=== PATIENT | female | born 1990 | race Caucasian/White ===

== ENCOUNTER 2020-10-07 16:48 | Inpatient (IN) | payer OTHER ==
[2020-10-07] MEDS ORDERED: Nalbuphine 10 MG/1 ML Vial IVPUSH PRN (17:40)
[2020-10-07] MEDS ORDERED: Sodium Chloride 0.9% 10 ML Syringe FLUSH PRN (17:40)
[2020-10-07] MEDS ORDERED: Ondansetron 4 MG/2 ML SDV IVPUSH PRN (17:40)
[2020-10-07] MEDS ORDERED: Ampicillin 2 GM in Sodium Chloride 0.9% 100 ML IV ONE (17:40)
[2020-10-07] MEDS ORDERED: Lidocaine 1% 50 ML MDV INJECT ONE (17:40)
[2020-10-07] MEDS ORDERED: Lactated Ringers 1,000 ML IV SCH (17:45)
[2020-10-07] MEDS ORDERED: Lactated Ringers 1,000 ML ONE (17:49)
--- NOTE | 2020-10-07 17:54 | PCM.LDHP ---
L&D History of Present Illness - General Date of Service: 10/07/20 Admit Problem/Dx: Patient Status Order with Admit Dx/Problem 10/07/20 17:11 Patient Status [ADT] Routine 10/07/20 17:40 Patient Status [ADT] Routine Admission Diagnosis/Problem Admission Diagnosis/Problem 10/07/20 17:46 Ragini is a 30-year old 2 para 1-0-0-1 white female admitted into labor and delivery on the late afternoon of 10/07/2020 at 38-2/7 weeks gestational age in active labor with progressive cervical dilation. Source of Information: Patient History Limitations: Reports: No Limitations - History of Present Illness Introduction:: Ragini is a 30-year old 2 para 1-0-0-1 white female admitted into labor and delivery on the late afternoon of 10/07/2020 at 38-2/7 weeks gestational age in active labor with progressive cervical dilation. She had been seen earlier in the clinic at which time she was amena approximate every 5 to 10 minutes. She was sent home but returned to labor and delivery with more frequent and intense contractions every 3 to 5 minutes. Her cervix changed from 3 cm to 4 cm, was 90% effaced, cephalic presentation, very soft, bulging bag waite and some bloody show present. 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 Patient had menarche at age 14. Cycles every 30 days. No control at the time of conception. Certain last menstrual period started on 01/13/2020. Her is dated by this LMP and supported by at least 3 ultrasounds done during the course of the . Previous obstetric history includes a delivery on 12/12/1999 3:19 hours of labor7 pound 14 ounce male infant born via in [facility]. Child's name is Angeles. course: Patient was seen early in the at approximately 11 weeks gestational age. She is seen on a regular basis throughout the . Her weight gain has been from 151 to 180.1 pounds for a 29 pound increase. Fundal height growth has been appropriate. Her has been relatively unremarkable. She has a history of rapid labor with her first . She plans to breast-feed. Her [place] depression screen score on 07/07/2020 was 5/30. She does not plan to have an epidural at this time but is open to it if needed. She is group B strep positive on urine culture done earlier in the . Laboratory testing in shows blood to be a positive with a negative antibody screen. Her hemoglobin is 13.8 g/dL. Platelets are 222,000. She is rubella immune. RPR is nonreactive. She had group B strep positive status on initial urine culture. Hepatitis B surface antigen and HIV assays were both negative. Her chlamydia and gonorrhea tests were negative. Second trimester l abs showed a hemoglobin of 13.7 g/dL. Her platelets are 220,000. Diabetic screen was normal at 111. RPR on 07/07/2020 was nonreactive. She is group B strep positive. Allergies: None Medications: 1. vitamins 1 daily 2. Vitamin D caps daily 3. Collagen caps daily 4. B complex oral capsules daily. Past medical history: 1. x1 as above. 2. History of migraine headaches. Family history: Mother is alive and well. Father is alive with history of heart disease. Brother alive with shoulder surgery history. 1 sister alive and well. Maternal grandmother is alive and well as his maternal grandfather. Paternal grandmother is secondary to stomach ulcers. Paternal grandfather is secondary to dementia. There is no known family history of cancer, bleeding, blood clotting disorders, anesthesia related issues or related issues. Paternal side of the family has a history of in vitro fertilization twins and triplets. Renal side has a history of twins. Social history: Patient is . She and her Maggi live in [place], [place]. She does not use any significant also alcohol, drugs or tobacco. Review of systems: In general patient has no complaints. She is reporting contractions as reported above. They have intensified and become more frequent. Baby has been active. Skin: Negative Lungs: No infectious symptoms or shortness of breath Cardiovascular: No chest pain or exercise intolerance Breasts: No lumps, changes in size, pain, dimpling, discharge or axillary or supraclavicular concerns. Patient plans to breast-feed. GI: Negative : Body habitus changes associated with . Musculoskeletal: Negative Neurological: Negative Physical exam: In general the patient is well-developed, well-nourished, pleasant female of stated age in no acute distress. On last evaluation clinic earlier today her blood pressure was 92/56. Weight was 180.1 pounds. heart rate is 147. Pregravid weight was 151 pounds giving a 29 pound increase. Skin is warm dry without lesions. HEENT, neck and back within normal limits. Lungs are clear with good breath sounds in all lung chau. Cardiovascular exam shows regular and rhythm without murmurs. Breast exam done early in was normal and is not repeated at this time. She has scars secondary to reduction mammoplasty. Abdomen is gravid with last fundal height earlier today at 39+ centimeters. Genitaldigital exam as reported above Extremities and neurological exam are grossly within normal limits. - Related Data Allergies/Adverse Reactions: Allergies Allergy/AdvReac Type Severity Reaction Status Date / Time No Known Allergies Allergy Verified 05/22/14 11:01 Home Medications: Home Meds Acetaminophen [Tylenol Extra Strength] 500 mg PO QID PRN 05/22/14 [History] Cholecalciferol (Vitamin D3) [Vitamin D] 5,000 unit PO DAILY 10/07/20 [History] Vits #93/Iron Fum/FA [ Formula Tablet] 1 tab PO DAILY 10/07/20 [History] Vitamin B Complex 1 cap PO DAILY 10/07/20 [History] H&P Review of Systems - Review of Systems: Review Of Systems: See Below L&D Exam - Exam Exam: See Below - Vital Signs Weight: 81.193 kg Problem List Initiated/Reviewed/Updated: Yes Orders Last 24hrs: Active Orders 24 hr Category Date Time Status Patient Status [ADT] Routine ADT 10/07/20 17:40 Ordered Activity as Tolerated [RC] PFP Care 10/07/20 17:40 Ordered Communication Order [RC] ASDIRECTED Care 10/07/20 17:40 Ordered Heart Tones [RC] ASDIRECTED Care 10/07/20 17:41 Ordered Non Stress Test [RC] PER UNIT ROUTINE Care 10/07/20 17:11 Active Non Stress Test [RC] PER UNIT ROUTINE Care 10/07/20 17:40 Ordered Notify Provider [RC] PFP Care 10/07/20 17:40 Ordered Notify Provider [RC] PRN Care 10/07/20 17:40 Ordered Peripheral IV Care [RC] . DIRECTED Care 10/07/20 17:41 Ordered Vital Signs [RC] PER UNIT ROUTINE Care 10/07/20 17:11 Active Vital Signs [RC] PER UNIT ROUTINE Care 10/07/20 17:40 Ordered Regular Diet [DIET] Diet 10/07/20 Dinner Ordered CBC W/O DIFF,HEMOGRAM [HEME] Routine Lab 10/07/20 17:40 Ordered CORONAVIRUS COVID-19 WES [MOLEC] Stat Lab 10/07/20 17:44 Ordered RAPID PLASMA REAGIN,RPR [CHEM] Routine Lab 10/07/20 17:40 Ordered RAPID PLASMA REAGIN,RPR [CHEM] Stat Lab 10/07/20 17:40 Ordered Ampicillin 1 gm Med 10/07/20 17:45 Ordered Sodium Chloride 0.9% [Normal Saline] 100 ml IV Q4H Ampicillin 2 gm Med 10/07/20 17:40 Ordered Sodium Chloride 0.9% [Normal Saline] 100 ml IV ONETIME Lactated Ringers [Ringers, Lactated] 1,000 ml Med 10/07/20 17:45 Ordered IV ASDIRECTED Lidocaine 1% [Xylocaine 1%] Med 10/07/20 17:40 Once 50 ml INJECT ONETIME ONE Nalbuphine [Nubain] Med 10/07/20 17:40 Ordered 10 mg IVPUSH Q2H PRN Ondansetron [Zofran] Med 10/07/20 17:40 Ordered 4 mg IVPUSH Q4H PRN Sodium Chloride 0.9% [Saline Flush] Med 10/07/20 17:40 Ordered 10 ml FLUSH ASDIRECTED PRN Electronic Heart Tones Ext w TOCO [WOMSER] Oth 10/07/20 17:40 Ordered Routine Electronic Heart Tones Internal [WOMSER] Per Unit Oth 10/07/20 17:40 Ordered Routine Peripheral IV Insertion Adult [OM.PC] Routine Oth 10/07/20 17:40 Ordered Resuscitation Status Routine Resus Stat 10/07/20 17:11 Ordered Assessment/Plan Comment:: 1. 38-2/7-week intrauterine , active labor, progressive cervical dilation 2. Group B strep screen positive. Patient has no allergies therefore is candidate for ampicillin prophylaxis per protocol 3. Patient desires to breast-feed 4. Patient desires not to have an epidural at this time but is open to it if needed 5. Patient has been immunized with flu vaccine on 09/29/2020 and Tdap on 09/29/2020. She is rubella immune. She had her HPV vaccinations in 2010. Her hepatitis B vaccinations in 2003. Her pneumococcal vaccination in 1991 and her meningococcal vaccination in 2007. Plan: 1. Patient has undergone AROM with resultant clear amniotic fluid. Anticipate . 2. Ampicillin prophylaxis for group B strep 3. Epidural per patient desire 4. Support patient is breast-feeding decision 5. Routine labor care. 6. Orders upon admission include a CBC, RPR, Covid19 testing.
[2020-10-07] MEDS ORDERED: Oxytocin/Lactated Ringers 10 UNIT/1,000 ML BAG IV SCH (18:30)
--- NOTE | 2020-10-07 19:19 | PCM.SN.2 ---
- Free Text/Narrative Note: Ragini is a 30-year old 2 para 1-0-0-1 white female admitted into labor and delivery on the late afternoon of 10/07/2020 at 38-2/7 weeks gestational age in active labor with progressive cervical dilation. She advanced very quickly to complete cx dilation. With three pushes aand with gentle downward and then upward pressure on the shoulders the baby delivered. She delivered a viable, alexis, male infant with Apgars of 7/9, a weight of 3180 g, a length of 19 inches in a direct OA position at 1840 hours on 10/07/2020. The baby was placec on mom's abdomen, dried and nose and mouth were bulb suctioned. Pitocin was increased to 500 ml per hour to increase uterine tone and decrease the likelihood of uterine bleeding. Cord blood was obtained. The cord had three vessels. The placenta delivered at 1843 in a solorio presentation, intact and complete. It was discarded per patient desire. EBL: 100 ml. Condition good. Patient plans to breastfeed.
[2020-10-07] MEDS ORDERED: Benzocaine/Menthol 20%-0.5% Spray 56 GM Canister TOP PRN (20:50)
[2020-10-07] MEDS ORDERED: Docusate Sodium 100 MG Cap PO PRN (20:50)
[2020-10-07] MEDS ORDERED: Witch Hazel Medicated Pads 40/Jar TOP PRN (20:50)
[2020-10-07] MEDS ORDERED: Acetaminophen 325 MG Tab PO PRN (20:50)
[2020-10-07] MEDS: Ibuprofen 600 MG Tab PO PRN (20:55)
[2020-10-07] MEDS ORDERED: Ampicillin 1 GM in Sodium Chloride 0.9% 100 ML IV SCH (21:40)
[2020-10-08] MEDS: Ibuprofen 600 MG Tab PO PRN ×5 (01:07→19:51)
[2020-10-08] MEDS: Prenatal Multivitamin with Calcium/Folic Acid/Iron Tab PO SCH (09:13)
--- NOTE | 2020-10-08 10:34 | PCM.SN.2 ---
- Free Text/Narrative Note: note: Patient is doing well in the period. Minimal lochia, voiding well, ambulated without problems. Nursing without concerns. Patient is afebrile, vital signs are stable Abdomen is flat, soft, uterus is below the umbilicus and is firm and nontender. Legs are nontender. Assessment: recovery going well. Plan: Routine care. Patient be discharged home within the next 24-48 hours. Is to be observed for the next 24 to 36 hours as mom was group B strep positive and had a rapid labor without the benefit of the second dose of ampicillin.
--- NOTE | 2020-10-09 07:54 | PCM.DCSUM1 ---
Discharge Summary - Hospital Course Diagnosis: Stroke: No - Discharge Data Discharge Date: 10/09/20 Discharge Disposition: Home, Self-Care 01 Condition: Good - Referral to Home Health Primary Care Physician: Krishna Dial MD - Patient Summary/Data Hospital Course: Ragini is a 30-year old 2 para 1-0-0-1 white female admitted into labor and deli very on the late afternoon of 10/07/2020 at 38-2/7 weeks gestational age in active labor with progressive cervical dilation. She advanced very quickly to complete cx dilation. With three pushes aand with gentle downward and then upward pressure on the shoulders the baby delivered. She delivered a viable, alexis, male with Apgars of 7/9, a weight of 3180 g, a length of 19 inches in a direct OA position at 1840 hours on 10/07/2020. The baby was placec on mom's abdomen, dried and nose and mouth were bulb suctioned. Pitocin was increased to 500 ml per hour to increase uterine tone and decrease the likelihood of uterine bleeding. Cord blood was obtained. The cord had three vessels. The placenta delivered at 1843 in a solorio presentation, intact and complete. It was discarded per patient desire. EBL: 100 ml. Condition good. Patient plans to breastfeed. Uncomplicated course - Patient Instructions Diet: Heart Healthy Diet Activity, Other: pelvic rest Driving: May Drive Today Notify Provider of: Fever, Increased Pain, Swelling and Redness, Drainage - Discharge Plan *PRESCRIPTION DRUG MONITORING PROGRAM REVIEWED*: No *COPY OF PRESCRIPTION DRUG MONITORING REPORT IN PATIENT JUDY: No Home Medications: Home Meds Acetaminophen [Tylenol Extra Strength] 500 mg PO QID PRN 05/22/14 [History] Cholecalciferol (Vitamin D3) [Vitamin D] 5,000 unit PO DAILY 10/07/20 [History] Vits #93/Iron Fum/FA [ Formula Tablet] 1 tab PO DAILY 10/07/20 [History] Vitamin B Complex 1 cap PO DAILY 10/07/20 [History] Referrals: Krishna Dial MD [Primary Care Provider] - (2 weeks) - Discharge Summary/Plan Comment DC Time >30 min.: No - Patient Data Vitals - Most Recent: Last Vital Signs Temp 36.6 C 10/09/20 02:44 Pulse 54 L 10/09/20 02:44 Resp 14 10/09/20 02:44 BP 124/79 10/09/20 02:44 Pulse Ox 97 10/09/20 02:44 Weight - Most Recent: 81.193 kg Med Orders - Current: Current Medications Acetaminophen (Tylenol) 650 mg PO Q4H PRN PRN Reason: mild pain or fever Benzocaine/Menthol (Dermoplast [facility]) 0 gm TOP ASDIRECTED PRN PRN Reason: Perineal Comfort Measure Docusate Sodium (Colace) 100 mg PO BID PRN PRN Reason: Constipation Ibuprofen (Motrin) 600 mg PO Q4H PRN PRN Reason: Mild pain or fever Last Admin: 10/08/20 19:51 Dose: 600 mg Documented by: Ashley Multivit/Dixie/Iron/Folic Ac ( Plus Iron) 1 each PO DAILY [facility] Last Admin: 10/08/20 09:13 Dose: 1 each Documented by: [facility]) 1 pad TOP ASDIRECTED PRN PRN Reason: Perineal Comfort Measure Discontinued Medications Lactated Ringer's (Ringers, Lactated) 1,000 mls @ 100 mls/hr IV ASDIRECTED [facility] Last Admin: 10/07/20 18:02 Dose: 100 mls/hr Documented by: Ampicillin Sodium 2 gm/ Sodium (Chloride) 100 mls @ 200 mls/hr IV ONETIME ONE Stop: 10/07/20 18:09 Last Admin: 10/07/20 18:03 Dose: 200 mls/hr Documented by: Ampicillin Sodium 1 gm/ Sodium (Chloride) 100 mls @ 200 mls/hr IV Q4H [facility] Lactated Ringer's (Ringers, Lactated) Confirm Administered Dose 1,000 mls @ as directed .ROUTE .STK-MED ONE Stop: 10/07/20 17:50 Last Admin: 10/07/20 18:03 Dose: Not Given Documented by: Oxytocin/Lactated Ringer's (Pitocin In Lr 10 Units/1,000 Ml) 10 unit in 1,000 mls @ 500 mls/hr IV ASDIRECTED [facility] Last Admin: 10/07/20 18:45 Dose: 500 mls/hr Documented by: Lidocaine HCl (Xylocaine 1%) 50 ml INJECT ONETIME ONE Stop: 10/07/20 17:41 Last Admin: 10/08/20 00:37 Dose: Not Given Documented by: Nalbuphine HCl (Nubain) 10 mg IVPUSH Q2H PRN PRN Reason: Pain Ondansetron HCl (Zofran) 4 mg IVPUSH Q4H PRN PRN Reason: Nausea/Vomiting Sodium Chloride (Saline Flush) 10 ml FLUSH ASDIRECTED PRN PRN Reason: Keep Vein Open
[2020-10-09] MEDS: Prenatal Multivitamin with Calcium/Folic Acid/Iron Tab PO SCH (09:29)
[2020-10-09] MEDS: Ibuprofen 600 MG Tab PO PRN (09:29)
== END 2020-10-09 15:07 | disposition home or self-care (01) | DRG 807 ==
LOC: JD.OB 16:48 → JD.OBCHECK 16:48 → JD.OB 17:40 → OBSVTOIN 18:40
PROVIDERS: ADMIT Obstetrics & Gynecology; ATTEND Obstetrics & Gynecology
PROC: 10E0XZZ Delivery of Products of Conception, External Approach (ICD-10-PCS; principal; 2020-10-07)
DX: O80 Encounter for full-term uncomplicated delivery (principal); Z37.0 Single live birth; Z3A.38 38 weeks gestation of pregnancy; Z20.828 Contact with and (suspected) exposure to other viral communicable diseases
CPT/HCPCS: 36415; 59025; 59409; 85027; 86592; A9270-GY; J0290; J2590; J7050; J7120; U0002